=== PATIENT | female | born 1975 | race Caucasian/White ===

== ENCOUNTER 2017-05-29 01:16 | Emergency (ER) | payer MEDICAID ==
[~2017-05-29 01:16] MED LIST: CEPH500C5 PO; CYCL-1 PO; HYDR-565 PO; ONDA4TAB12 PO
== END 2017-05-29 02:06 | disposition left against medical advice (07) ==
LOC: ER 01:17
DX: R21 Rash and other nonspecific skin eruption (principal); Z53.21 Procedure and treatment not carried out due to patient leaving prior to being seen by health care provider

== ENCOUNTER 2018-05-11 00:50 | Emergency (ER) | payer MEDICAID ==
[~2018-05-11] VITALS: Ht 154.9 cm; Wt 72.0 kg
[~2018-05-11 00:50] MED LIST changes: -CEPH500C5 PO; +HYDR-4353 PO; -HYDR-565 PO
[2018-05-11] MEDS ORDERED: METH4TAB3 PO (01:13)
[2018-05-11] MEDS ORDERED: diphenhydrAMINE 25mg capsule PO ONE (01:15)
[2018-05-11] MEDS ORDERED: predniSONE 20 mg tablet PO ONE (01:15)
[2018-05-11 01:34] VITALS: BP 132/84
== END 2018-05-11 01:36 | disposition home or self-care (01) ==
LOC: ER 00:50
DX: L23.7 Allergic contact dermatitis due to plants, except food (principal); E11.9 Type 2 diabetes mellitus without complications; F17.200 Nicotine dependence, unspecified, uncomplicated; Z56.0 Unemployment, unspecified; Z79.899 Other long term (current) drug therapy
CPT/HCPCS: 99283; J7512; Q0163

== ENCOUNTER 2020-02-21 13:46 | Emergency (ER) | payer MEDICAID ==
[~2020-02-21] VITALS: Ht 154.9 cm; Wt 77.3 kg
[~2020-02-21 13:46] MED LIST changes: +METH4TAB3 PO
[2020-02-21] MEDS ORDERED: diphenhydrAMINE 25mg capsule PO ONE (14:15)
[2020-02-21] MEDS ORDERED: predniSONE 20 mg tablet PO ONE (14:15)
[2020-02-21] MEDS ORDERED: PRED20TA PO (14:24)
[2020-02-21] MEDS ORDERED: DIPH50CA39 PO (14:24)
[2020-02-21 14:32] VITALS: BP 137/92
== END 2020-02-21 14:33 | disposition home or self-care (01) ==
LOC: ER 13:46
DX: T78.40XA Allergy, unspecified, initial encounter (principal); E11.9 Type 2 diabetes mellitus without complications; Z56.0 Unemployment, unspecified; Z79.899 Other long term (current) drug therapy; X58.XXXA Exposure to other specified factors, initial encounter
CPT/HCPCS: 99283; J7512; Q0163

== ENCOUNTER 2020-09-07 02:34 | Emergency (ER) | payer MEDICAID ==
[~2020-09-07] VITALS: Ht 154.9 cm; Wt 79.5 kg
[~2020-09-07 02:34] MED LIST changes: +DIPH50CA39 PO
[2020-09-07 02:41] VITALS: BP 136/92
== END 2020-09-07 04:36 | disposition left against medical advice (07) ==
LOC: ER 02:35
DX: M54.9 Dorsalgia, unspecified (principal); Z53.21 Procedure and treatment not carried out due to patient leaving prior to being seen by health care provider

== ENCOUNTER 2020-09-11 12:08 | Emergency (ER) | payer MEDICAID ==
[~2020-09-11] VITALS: Ht 154.9 cm; Wt 83.0 kg
[2020-09-11 12:12] VITALS: BP 170/105
[2020-09-11] MEDS ORDERED: ketorolac trometh. 30mg/ml inj. IM ONE (12:30)
[2020-09-11] MEDS ORDERED: CYCL-1 PO (12:34)
== END 2020-09-11 12:58 | disposition home or self-care (01) ==
LOC: ER 12:08
DX: S39.012A Strain of muscle, fascia and tendon of lower back, initial encounter (principal); E11.9 Type 2 diabetes mellitus without complications; Z56.0 Unemployment, unspecified; Z79.899 Other long term (current) drug therapy; W19.XXXA Unspecified fall, initial encounter; Y93.89 Activity, other specified; Y92.89 Other specified places as the place of occurrence of the external cause; Y99.8 Other external cause status
CPT/HCPCS: 96372; 99283; J1885

== ENCOUNTER 2020-12-26 03:18 | Emergency (ER) | payer MEDICAID ==
[~2020-12-26] VITALS: Ht 154.9 cm; Wt 83.3 kg
[2020-12-26 03:45] VITALS: BP 174/97
== END 2020-12-26 08:42 | disposition left against medical advice (07) ==
LOC: ER 03:19
DX: H92.02 Otalgia, left ear (principal); Z53.21 Procedure and treatment not carried out due to patient leaving prior to being seen by health care provider

== ENCOUNTER 2021-03-04 07:21 | Emergency (ER) | payer MEDICAID ==
[~2021-03-04] VITALS: Ht 154.9 cm; Wt 80.9 kg
[2021-03-04 07:59] LABS: URINE HCG NEGATIVE (NEG)
[2021-03-04 08:17] LABS: CLARITY,URINE SLIGHTLY CLOUDY (Clear); COLOR,URINE YELLOW (Yellow); GLUCOSE, URINE NEGATIVE (Neg); KETONES,URINE NEGATIVE (Neg); LEUKOCYTE ESTERASE ,URINE NEGATIVE (Neg); NITRITES, URINE NEGATIVE (Neg); OCCULT BLOOD,URINE NEGATIVE (Neg); PH,URINE 5.5 (4.8-8.0); PROTEIN,URINE NEGATIVE (Neg); UROBILINOGEN,URINE 0.2 E.U/dL (0.2-1.0)
[2021-03-04 08:34] LABS: UA COLLECTION TYPE CLN CATCH MIDSTREAM
[2021-03-04 08:35] LABS: MUCUS STRANDS MANY /LPF (Neg); SQUAMOUS EPITHELIAL CELL,UR MANY /LPF (FEW)
[2021-03-04 08:36] LABS: BACTERIA,URINE 1+ /HPF (Neg); HYALINE CASTS 0-3 /LPF (NEGATIVE); RBC,URINE 0-2 /HPF (0-2); WBC,URINE 0-4 /HPF (0-4)
[2021-03-04 08:36] LABS: BASOPHILS # (AUTO) 0.1 X10'3 (0-0.2); BASOPHILS % (AUTO) 0.5 % (0-1); EOSINOPHILS # (AUTO) 0.6 X10'3 (0-0.9); EOSINOPHILS % (AUTO) 6.7 % (0-6); HEMATOCRIT 39.7 % (35.0-45.0); HEMOGLOBIN 13.5 g/dl (12.0-16.0); LYMPHOCYTES # (AUTO) 1.8 X10'3 (1.1-4.8); LYMPHOCYTES % (AUTO) 18.4 % (21-51); MEAN CORPUSCULAR HEMOGLOBIN 31.1 PG (27.0-31.0); MEAN CORPUSCULAR HGB CONC 34.1 g/dL (33.0-36.5); MEAN CORPUSCULAR VOLUME 91.3 FL (78-98); MEAN PLATELET VOLUME 7.9 FL (7.4-10.4); MONOCYTES # (AUTO) 0.8 X10'3 (0-0.9); MONOCYTES % (AUTO) 8.3 % (2-12); NEUTROPHILS # (AUTO) 6.3 X10'3 (1.8-7.7); NEUTROPHILS % (AUTO) 66.1 % (42-75); PLATELET COUNT 374 X10'3 (140-440); RED BLOOD COUNT 4.35 X10'6 (4.20-5.60); RED CELL DISTRIBUTION WIDTH 12.7 % (11.5-14.5); WHITE BLOOD COUNT 9.6 X10'3 (4.5-11.0)
[2021-03-04 08:49] LABS: ALANINE AMINOTRANSFERASE 21 U/L (12-78); ALBUMIN 3.6 G/DL (3.4-5.0); ALBUMIN/GLOBULIN RATIO 0.8 (1.1-1.5); ALKALINE PHOSPHATASE 123 IU/L (46-116); ANION GAP 11 (8-16); ASPARTATE AMINO TRANSFERASE 15 U/L (10-37); BILIRUBIN,TOTAL 0.4 MG/DL (0.1-1.0); BLOOD UREA NITROGEN 15 MG/DL (7-18); BUN/CREATININE RATIO 21.1 (6.6-38.0); CALCIUM 8.9 MG/DL (8.5-10.1); CHLORIDE 105 MMOL/L (99-107); CREATININE 0.71 MG/DL (0.40-0.90); GLUCOSE 118 MG/DL (70-104); LIPASE 73 U/L (73-393); POTASSIUM 3.7 MMOL/L (3.5-5.1); SODIUM 141 MMOL/L (135-145); TOTAL CARBON DIOXIDE 25.4 MMOL/L (24-32); TOTAL PROTEIN 7.9 G/DL (6.4-8.2); eGFR 90 ML/MIN
[2021-03-04] MEDS ORDERED: NAPR-56 PO ×2 (09:56→10:12)
[2021-03-04] MEDS ORDERED: METH4TAB3 PO ×2 (09:56→10:12)
[2021-03-04 10:07] VITALS: BP 162/117
== END 2021-03-05 12:10 | disposition home or self-care (01) ==
LOC: ER 07:23
DX: I88.0 Nonspecific mesenteric lymphadenitis (principal); I10 Essential (primary) hypertension; F17.200 Nicotine dependence, unspecified, uncomplicated; E11.9 Type 2 diabetes mellitus without complications; Z87.81 Personal history of (healed) traumatic fracture; Z56.0 Unemployment, unspecified; Z79.899 Other long term (current) drug therapy; Z98.891 History of uterine scar from previous surgery
CPT/HCPCS: 36415; 74176; 80053; 81001; 81025; 83690; 85025; 99284

== ENCOUNTER 2023-09-09 00:19 | Emergency (ER) | payer MEDICAID ==
[~2023-09-09] VITALS: Ht 154.9 cm; Wt 79.5 kg
[~2023-09-09 00:19] MED LIST changes: +ONDA-243 PO; -ONDA4TAB12 PO
[2023-09-09 00:23] VITALS: BP 143/91; PULSE 98; RESP 16; TEMP 99; O2SAT 100
== END 2023-09-09 01:42 | disposition left against medical advice (07) ==
LOC: ER 00:20
DX: I10 Essential (primary) hypertension (principal); Z53.21 Procedure and treatment not carried out due to patient leaving prior to being seen by health care provider